=== PATIENT | female | born 1945 | race Caucasian/White ===

== ENCOUNTER 2017-12-16 05:10 | Observation (INO) | payer MEDICARE ==
[2017-12-13 11:59] LABS: BASOPHILS # (AUTO) 0.1 (0.0-0.1); EOSINOPHILS # (AUTO) 0.2 (0.0-0.4); HEMATOCRIT 30.6 % (34.2-44.1); HEMOGLOBIN 10.8 g/dL (12.0-16.0); LYMPHOCYTES # (AUTO) 1.6 (1.0-3.2); LYMPHOCYTES % 32.7 % (18.0-39.1); MEAN CORPUSCULAR HEMOGLOBIN 31.5 pg (28-32); MEAN CORPUSCULAR HGB CONC 35.3 g/dL (31-35); MEAN CORPUSCULAR VOLUME 89.2 fL (81-99); MONOCYTES # (AUTO) 0.4 (0.2-0.8); MONOCYTES % 8.5 % (4.4-11.3); NEUTROPHILS # (AUTO) 2.7 (2.1-6.9); NEUTROPHILS % 54.4 % (38.7-80.0); PLATELET COUNT 218 x10e3/uL (140-360); RED BLOOD COUNT 3.43 x10e6/uL (3.6-5.1); RED CELL DISTRIBUTION WIDTH 12.5 % (11.7-14.4)
--- NOTE | 2017-12-13 12:16 | Diagnostic Imaging Report ---
PROCEDURE: X-RAY CHEST, TWO VIEWS COMPARISON: None. INDICATIONS: PREOP - LEFT KNEE SURGERY FINDINGS: LUNGS: No consolidations or edema. Calcified granuloma in the left mid lung. PLEURA: No effusions or pneumothorax. HEART \T\ MEDIASTINUM: The heart is within normal size-limits. Aortic arch calcifications. BONES \T\ SOFT TISSUES: No acute findings. UPPER ABDOMEN: No free air under the diaphragm. Diffuse abdominal aortic calcifications. CONCLUSION: No acute thoracic abnormality. Dictated by: Mateo Xiong M.D. on 12/13/2017 at 12:20 Electronically approved by: Mateo Xiong M.D. on 12/13/2017 at 12:20
[2017-12-13 12:19] LABS: ANION GAP 13.1 mmol/L (8-16); CALCIUM 10.7 mg/dL (8.4-10.2); CREATININE, SERUM 1.87 mg/dL (0.57-1.11); POTASSIUM 3.1 mmol/L (3.5-5.1)
[~2017-12-16] VITALS: Ht 160 cm; Wt 76.7 kg
[~2017-12-16 05:10] MED LIST: ASPIRIN81 MG; CLONIDINE HCL0.1 MG PO; CLOPIDOGREL75 MG PO; FENOFIBRATE145 MG; FUROSEMIDE40 MG PO; HYDROCHLOROTHIA25 MG; LORAZEPAM0.5 MG PO; LOSARTAN POTAS100 MG PO; METOPROLOL SUCC50 MG PO; OMEPRAZOLE40 MG; RANITIDINE HCL300 MG; SERTRALINE HCL100 MG PO; TRAZODONE HCL50 MG PO
[2017-12-16] MEDS ORDERED: DEXAMETHASONE SOD PHOS 10 MG/1 ML VIAL ONE (05:57)
[2017-12-16] MEDS ORDERED: CELECOXIB 200 MG CAP ONE (05:57)
[2017-12-16] MEDS ORDERED: CEFAZOLIN SOD 2 GM/D5W 50ML 50 ML IV ONE (05:58)
[2017-12-16] MEDS ORDERED: GABAPENTIN 300 MG CAP ONE (05:58)
[2017-12-16] MEDS ORDERED: TRANEXAMIC ACID 1,000 MG/10 ML ML ONE (06:56)
[2017-12-16] MEDS ORDERED: MUPIROCIN 2% OINT 22 GM TUBE ONE (06:56)
[2017-12-16] MEDS ORDERED: BACITRACIN 50,000 UNIT VIAL ONE (06:57)
[2017-12-16] MEDS ORDERED: ROPIVACAINE 246.25 MG, EPINEPHRINE HCL 1:1000 0.5 MG, CLONIDINE HCL 0.08 MG, KETOROLAC ... INJ ONE ×5 (07:30)
[2017-12-16] MEDS ORDERED: HEPARIN SOD/SOD CHLORIDE 1,000 ML ONE (07:50)
[2017-12-16] MEDS ORDERED: HYDROCODONE/APAP 5MG-325MG TAB PO PRN (08:45)
[2017-12-16] MEDS ORDERED: PROMETHAZINE HCL (IM) 25 MG/ML VIAL IM PRN (08:45)
[2017-12-16] MEDS ORDERED: ONDANSETRON HCL INJ 2 MG/ML VIAL IV PRN (08:45)
[2017-12-16] MEDS ORDERED: DOCUSATE SODIUM 100 MG CAP PO PRN (08:45)
[2017-12-16] MEDS ORDERED: DIPHENHYDRAMINE HCL INJ 50 MG/ML VIAL IM/IV PRN (08:45)
[2017-12-16] MEDS ORDERED: ACETAMINOPHEN 650 MG SUPP PR PRN (08:45)
[2017-12-16] MEDS ORDERED: KETOROLAC TROMETHAMINE 30 MG/ML VIAL IV PRN (08:45)
[2017-12-16] MEDS ORDERED: CELECOXIB 100 MG CAP PO SCH (09:00)
[2017-12-16] MEDS ORDERED: ASPIRIN 325 MG TAB PO SCH (09:00)
[2017-12-16] MEDS ORDERED: CLONIDINE HCL 0.1 MG/24 HR 1 EA PATCH TOP NR (09:15)
[2017-12-16 10:10] VITALS: BP 181/80
[2017-12-16 10:30] VITALS: BP 181/80
--- NOTE | 2017-12-16 11:10 | Diagnostic Imaging Report ---
PROCEDURE:X-RAY LEFT KNEE, ONE OR TWO VIEWS COMPARISON:None. INDICATIONS:POST SURGICAL KNEE LEFT FINDINGS:Status post total left knee arthroplasty with intact prosthesis in adequate anatomic alignment. There is post-operative soft tissue swelling and gas. Multiple surgical skin barbara. No acute fracture-dislocation. No definite intra-osseous lesion. Vascular calcifications. CONCLUSION: Status post total left knee arthroplasty with intact prosthesis in adequate anatomic alignment. Dictated by: Ramon Prather M.D. on 12/16/2017 at 11:13 Electronically approved by: Ramon Prather M.D. on 12/16/2017 at 11:13
[2017-12-16 11:19] VITALS: BP 181/80
[2017-12-16] MEDS: ACETAMINOPHEN 1000 MG/100 ML IV SCH ×2 (12:08→16:45)
[2017-12-16] MEDS: SODIUM CHLORIDE 0.9% 1000ML 1,000 ML IV SCH (12:08)
[2017-12-16] MEDS: CEFAZOLIN SOD 1 GM/D5W 50ML 50 ML IV SCH ×2 (13:29→22:55)
--- NOTE | 2017-12-16 15:05 | Operative Report ---
DATE OF PROCEDURE: December 16, 2017 FONDANT MACHINE OPERATOR: Nico Cordero PA-C (The patient was brought to the operating room for induction of anesthesia. Throughout this case, my PA's assistance was necessary for retraction of soft tissue and positioning of the extremity. This allows for efficient and technically successful execution of the operation and is considered medically necessary.) PREOPERATIVE DIAGNOSIS: Osteoarthritis, left knee. POSTOPERATIVE DIAGNOSIS: Osteoarthritis, left knee. PROCEDURE: Left total knee arthroplasty. INDICATIONS: This patient is a 72-year-old lady who has advanced arthritis of her left knee. She has failed extensive conservative management and would like to proceed with a left total knee replacement. The risks and benefits have been discussed. She states she understands and wishes to proceed. DESCRIPTION OF PROCEDURE: The patient was brought to the operating room and placed under general anesthetic. She received prophylactic antibiotics, a regional block, and tranexamic acid in the holding room. Her left lower extremity was prepped and draped in the sterile manner. A preoperative time-out was performed. The extremity was exsanguinated and a proximal tourniquet was inflated to 300 mmHg. A direct anterior approach with a medial parapatellar arthrotomy was performed. Clear synovial fluid was removed from the joint. Soft tissue releases were performed to bring the knee up into flexion with the patella everted. Meniscal remnants, marginal osteophytes, and the cruciate ligaments were sacrificed. A [employer] Ainsley-II posterior-stabilized knee system was used throughout the case. An extramedullary cutting guide was used to resect the proximal tibia. The tibial baseplate was noted to be a size #3. The central fin punch was impacted, and attention was directed towards the distal femur. An intramedullary cutting guide was used to resect the distal femur in 6 degrees of valgus and rotation referencing off of a combination of landmarks including Kevan's line, the epicondylar axis in the posterior condyles. The femoral component was noted to be a size #4. The anterior and posterior cuts were made. Trial reductions were performed and a 9-mm ultra-congruent tibial insert was felt to provide optimal soft-tissue balancing in full extension and 90 degrees of flexion. The patella was resurfaced with a 29 mm x 9 mm patellar button. The thickness was checked before and after and was right around 23 mm. Patellar tracking was noted to be concentric. Trial implants were then all removed. A 100 mL premixed pericapsular JERMAINE injection was placed into the surrounding soft tissue. The knee was thoroughly irrigated with a shower-tip pulsatile lavage. The components were cemented into place using a single mix of Palacos cement pre-loaded with antibiotics. Care was taken to remove all extravasated cement. The wound was further irrigated while the cement cured. The arthrotomy was then closed with interrupted #1 Ethibond. The knee was put through flexion and extension to ensure a secure closure. The skin was then closed with subcuticular Vicryl and barbara. A sterile bandage was applied. The patient was extubated and transported to the recovery room in stable condition. Blood loss was minimal, and all needle and sponge counts were correct. Job#: [id number] WILLIAM
[2017-12-16 15:46] VITALS: BP 133/63
[2017-12-16] MEDS: CLONIDINE HCL 0.1 MG TAB PO SCH (16:42)
[2017-12-16] MEDS: CELECOXIB 200 MG CAP PO SCH (16:43)
[2017-12-16] MEDS ORDERED: LIDOCAINE HCL 2% LOCAL INJ 5 ML SDV VIAL INJ ONE (17:23)
[2017-12-16] MEDS ORDERED: SEVOFLURANE INHAL SOLN 250 ML PEN BTL ONE (17:23)
[2017-12-16] MEDS ORDERED: LABETALOL HCL 5 MG/ML 20ML VIAL ONE (17:23)
[2017-12-16] MEDS ORDERED: PROPOFOL IV EMULSION 10 MG/ML 20 ML VIAL ONE (17:23)
[2017-12-16] MEDS ORDERED: ONDANSETRON HCL INJ 2 MG/ML VIAL ONE (17:23)
[2017-12-16] MEDS ORDERED: HYDRALAZINE HCL 20 MG/ML VIAL ONE (17:23)
[2017-12-16] MEDS ORDERED: LIDOCAINE 2%/ EPINEPHRINE 20ML MDV ONE (17:53)
[2017-12-16] MEDS ORDERED: ROPIVACAINE 0.5% 5 MG/ML 30 ML SDV ONE (17:53)
[2017-12-16] MEDS ORDERED: MIDAZOLAM HCL 2 MG/2 ML VIAL ONE (17:59)
[2017-12-16] MEDS ORDERED: FENTANYL CITRATE/PF 100MCG/2 ML INJ ONE (17:59)
[2017-12-16 20:00] VITALS: BP 174/75
[2017-12-16] MEDS ORDERED: SERTRALINE HCL 100 MG TAB PO SCH (21:00)
[2017-12-16] MEDS ORDERED: ZOLPIDEM TARTRATE 5 MG TAB PO PRN (21:00)
[2017-12-16] MEDS ORDERED: LORAZEPAM 0.5 MG TAB PO SCH (21:00)
[2017-12-17] VITALS: BP 138/64
[2017-12-17] MEDS: ACETAMINOPHEN 1000 MG/100 ML IV SCH ×2 (00:44→06:03)
[2017-12-17 04:00] VITALS: BP 172/89
[2017-12-17] MEDS: HYDROCODONE/APAP 7.5MG-325MG 1 EA TAB PO PRN ×3 (04:51→17:55)
[2017-12-17 05:43] LABS: HEMATOCRIT 24.3 % (34.2-44.1); HEMOGLOBIN 8.1 g/dL (12.0-16.0)
[2017-12-17] MEDS: CEFAZOLIN SOD 1 GM/D5W 50ML 50 ML IV SCH (06:38)
[2017-12-17] MEDS ORDERED: PANTOPRAZOLE SOD 40 MG TABEC PO SCH (07:30)
[2017-12-17 08:15] VITALS: BP 188/81
[2017-12-17 08:26] VITALS: BP 188/81
[2017-12-17] MEDS: CELECOXIB 200 MG CAP PO SCH ×2 (08:30→15:51)
[2017-12-17] MEDS: SODIUM CHLORIDE 0.9% 1000ML 1,000 ML IV SCH (08:30)
[2017-12-17] MEDS: CLONIDINE HCL 0.1 MG TAB PO SCH ×2 (08:30→15:51)
[2017-12-17] MEDS ORDERED: ACETAMINOPHEN 1000 MG/100 ML IV PRN (08:45)
[2017-12-17] MEDS ORDERED: ASPIRIN 81 MG CHEW TAB PO SCH (09:00)
[2017-12-17] MEDS ORDERED: FUROSEMIDE 20 MG TAB PO SCH (09:00)
[2017-12-17] MEDS ORDERED: CLOPIDOGREL BISULFATE 75 MG TAB PO SCH (09:00)
[2017-12-17] MEDS ORDERED: METOPROLOL SUCCINATE 50 MG TAB XL PO SCH ×2 (09:00)
[2017-12-17] MEDS ORDERED: FENOFIBRATE 145 MG TAB PO SCH (09:00)
[2017-12-17] MEDS ORDERED: HYDROCHLOROTHIAZIDE 25 MG TAB PO SCH (09:00)
[2017-12-17] MEDS ORDERED: LOSARTAN POTASSIUM 100 MG TAB PO SCH (09:00)
[2017-12-17] MEDS ORDERED: FUROSEMIDE 40 MG TAB PO SCH (09:00)
[2017-12-17 12:18] VITALS: BP 128/57
[2017-12-17] MEDS ORDERED: NORCO 7.5-3251 EACH PO (14:39)
[2017-12-17] MEDS ORDERED: KETOROLAC TROMETHAMINE 60 MG/2 ML VIAL IM ONE (15:45)
[2017-12-17 16:59] VITALS: BP 194/81
[2017-12-17] MEDS ORDERED: TRAZODONE HCL 50 MG TAB PO SCH (21:00)
== END 2017-12-17 18:24 | disposition home or self-care (01) ==
LOC: OR 05:10 → PACU V 08:47 → IMCU 10:08
PROVIDERS: ADMIT Specialist; ATTEND Specialist
DX: M17.12 Unilateral primary osteoarthritis, left knee (principal); K21.9 Gastro-esophageal reflux disease without esophagitis; E78.00 Pure hypercholesterolemia, unspecified; Z88.2 Allergy status to sulfonamides; I12.9 Hypertensive chronic kidney disease with stage 1 through stage 4 chronic kidney disease, or unspecified chronic kidney disease; N18.3 Chronic kidney disease, stage 3 (moderate); D64.9 Anemia, unspecified
CPT/HCPCS: 27447; 36415 ×3; 71046; 73560; 80048; 84132; 85014; 85018; 85025; 86850; 86900; 86920; 93005; 96367; 97110; 97116 ×2; 97139 ×2; 97162; 97530; C1713; G0378 ×2; G8978; G8979; J0171; J0360; J1100; J1885 ×3; J2001 ×2; J2250; J2405; J2795; J3490; J7030 ×2; S0164